=== PATIENT | female | born 1950 | race Caucasian/White ===

== ENCOUNTER 2018-12-07 05:47 | Emergency (ER) | payer OTHER ==
[~2018-12-07] VITALS: Ht 172.7 cm; Wt 90.7 kg
[~2018-12-07 05:47] MED LIST: ASPI-1153 PO; DILT30TA36 PO; HYDR200T38 PO; IBUP-1969 PO; MYCO500T5 PO; OMEP20CA10 PO
[2018-12-07 05:55] VITALS: BP_SYST 125
[2018-12-07] MEDS ORDERED: AMOXICILLIN 500 MG CAPSULE PO ONE (06:30)
[2018-12-07 06:37] VITALS: BP_SYST 125
== END 2018-12-07 06:35 | disposition home or self-care (01) ==
LOC: SED 05:47
DX: H72.93 Unspecified perforation of tympanic membrane, bilateral (principal); J06.9 Acute upper respiratory infection, unspecified; F41.9 Anxiety disorder, unspecified; Z79.899 Other long term (current) drug therapy
CPT/HCPCS: 99283

== ENCOUNTER 2019-01-23 13:52 | Emergency (ER) | payer OTHER ==
[~2019-01-23] VITALS: Ht 167.6 cm; Wt 93.0 kg
[2019-01-23 14:12] VITALS: BP_SYST 160
[2019-01-23 15:09] LABS: HEMATOCRIT 34.7 % (36-48); HEMOGLOBIN 11.2 g/dL (12.0-16.0); MEAN CORPUSCULAR HEMOGLOBIN 25 pg (27-31); MEAN CORPUSCULAR HGB CONC 32 % (32-36); MEAN CORPUSCULAR VOLUME 79 fL (79.0-98.0); PLATELET COUNT (AUTO) 248 K/uL (130-430); RED BLOOD CELL COUNT(AUTO) 4.42 MIL/uL (4.2-6.2); RED CELL DISTRIBUTION WIDTH 15.6 % (9.0-15.0)
[2019-01-23 15:10] LABS: BASOPHILS # (AUTO) 0.1 K/uL (0.0-0.2); BASOPHILS % (AUTO) 1.3 % (0.0-2.0); EOSINOPHILS # (AUTO) 0.2 K/uL (0.0-0.4); EOSINOPHILS % (AUTO) 2.8 % (0.0-4.0); LYMPHOCYTES # (AUTO) 1.2 K/uL (1.0-5.5); MONOCYTES # (AUTO) 0.7 K/uL (0.0-1.0); MONOCYTES % (AUTO) 11.5 % (1.7-9.3); NEUTROPHILS # (AUTO) 3.9 K/uL (1.8-7.7); NEUTROPHILS % (AUTO) 64.4 % (40.0-70.0)
[2019-01-23 15:16] LABS: CALCIUM 8.9 mg/dL (8.4-11.0); CREATININE 0.78 mg/dL (0.55-1.30); POTASSIUM 3.8 mmol/L (3.5-5.1)
[2019-01-23 15:18] LABS: ALBUMIN 3.6 g/dL (3.4-4.8); TOTAL BILIRUBIN 0.3 mg/dL (0.0-1.0)
[2019-01-23 15:21] LABS: INR 0.9 (0.8-1.2); PROTHROMBIN TIME 9.6 SECS (9.5-12.5)
[2019-01-23 17:22] VITALS: BP_SYST 133
== END 2019-01-23 17:22 | disposition home or self-care (01) ==
LOC: SED 13:52
DX: G45.9 Transient cerebral ischemic attack, unspecified (principal); R03.0 Elevated blood-pressure reading, without diagnosis of hypertension; F41.9 Anxiety disorder, unspecified; Z86.79 Personal history of other diseases of the circulatory system; Z79.899 Other long term (current) drug therapy
CPT/HCPCS: 36415; 70450-TC; 71045; 80053; 83880; 84484; 85025; 85610-TC; 85730-TC; 93005; 99284

== ENCOUNTER 2019-06-09 10:30 | Emergency (ER) | payer OTHER, MEDICAID ==
[~2019-06-09] VITALS: Ht 170.2 cm; Wt 90.7 kg
[2019-06-09 10:40] VITALS: BP_SYST 127
[2019-06-09] MEDS ORDERED: NACL 0.9% 1,000 ML IV ONE (10:57)
[2019-06-09] MEDS ORDERED: LORazepam 2 MG/ML VIAL IVP ONE (11:00)
[2019-06-09] MEDS ORDERED: LORazepam 2 MG/ML VIAL (FOR ER USE) IVP ONE (11:15)
[2019-06-09 11:28] LABS: BASOPHILS # (AUTO) 0.1 K/uL (0.0-0.2); BASOPHILS % (AUTO) 1.4 % (0.0-2.0); EOSINOPHILS # (AUTO) 0.1 K/uL (0.0-0.4); EOSINOPHILS % (AUTO) 1.4 % (0.0-4.0); HEMATOCRIT 39.4 % (36-48); HEMOGLOBIN 12.7 g/dL (12.0-16.0); LYMPHOCYTES # (AUTO) 1.1 K/uL (1.0-5.5); LYMPHOCYTES % (AUTO) 20.7 % (20.5-51.5); MEAN CORPUSCULAR HEMOGLOBIN 25 pg (27-31); MEAN CORPUSCULAR HGB CONC 32 % (32-36); MEAN CORPUSCULAR VOLUME 79 fL (79.0-98.0); MONOCYTES # (AUTO) 0.5 K/uL (0.0-1.0); MONOCYTES % (AUTO) 9.3 % (1.7-9.3); NEUTROPHILS # (AUTO) 3.5 K/uL (1.8-7.7); NEUTROPHILS % (AUTO) 67.2 % (40.0-70.0); PLATELET COUNT (AUTO) 215 K/uL (130-430); RED BLOOD CELL COUNT(AUTO) 5.01 MIL/uL (4.2-6.2); RED CELL DISTRIBUTION WIDTH 17.4 % (9.0-15.0); WHITE BLOOD COUNT (AUTO) 5.2 K/uL (4.8-10.8)
[2019-06-09 11:40] LABS: CALCIUM 9.2 mg/dL (8.4-11.0); CREATININE 0.83 mg/dL (0.55-1.30); POTASSIUM 3.8 mmol/L (3.5-5.1)
[2019-06-09 11:44] LABS: PROTHROMBIN TIME 10.1 SECS (9.5-12.5)
[2019-06-09 11:46] LABS: ALBUMIN 3.6 g/dL (3.4-4.8); TOTAL BILIRUBIN 0.4 mg/dL (0.0-1.0)
[2019-06-09 14:10] VITALS: BP_SYST 127
== END 2019-06-09 14:10 | disposition home or self-care (01) ==
LOC: SED 10:30
DX: R20.2 Paresthesia of skin (principal); F41.9 Anxiety disorder, unspecified; Z86.79 Personal history of other diseases of the circulatory system; Z79.82 Long term (current) use of aspirin; Z79.899 Other long term (current) drug therapy
CPT/HCPCS: 36415; 70450; 80053; 81002; 81025; 84484; 85025; 85610; 85730; 93005; 96374; 99284; J2060

== ENCOUNTER 2019-10-04 08:29 | Emergency (ER) | payer OTHER, MEDICAID ==
[~2019-10-04] VITALS: Ht 167.6 cm; Wt 90.7 kg
[~2019-10-04 08:29] MED LIST changes: -OMEP20CA10 PO; +OMEP20CA11 PO
[2019-10-04 08:30] VITALS: BP_SYST 117
--- NOTE | 2019-10-04 08:46 | NUR ---
Patient to ER bed 8 to gown for evaluation. Side rails up. Report given to DARIA Carcamo.
--- NOTE | 2019-10-04 08:48 | NUR ---
Patient is awake, alert, and oriented x4. Patient reports having a cold for over 1 week. She is complaining of right ear pain, cough, and dizziness.
--- NOTE | 2019-10-04 08:50 | NUR ---
ER Dr. Stephens at bedside examining patient.
--- NOTE | 2019-10-04 09:05 | NUR ---
Patient given written and verbal discharge instructions and verbalizes understanding. ER MD discussed with patient the results and treatment provided. Patient in stable condition. ID arm band removed. Rx of amoxicillin, promethazine, motrin given. Patient educated on pain management and to follow up with PMD. Pain Scale 8/10, MD is aware. Opportunity for questions provided and answered. Medication side effect fact sheet provided.
[2019-10-04 09:06] VITALS: BP_SYST 117
[2019-10-04 09:16] LABS: STREPTOCOCCUS A SCREEN (RAPID) NEGATIVE (NEGATIVE)
[2019-10-04 09:26] LABS: INFLUENZA A&B ANTIGEN SCREEN NEGATIVE FOR A & B (NEGATIVE)
== END 2019-10-04 09:05 | disposition home or self-care (01) ==
LOC: SED 08:29
DX: H66.91 Otitis media, unspecified, right ear (principal); Z79.899 Other long term (current) drug therapy
CPT/HCPCS: 36415; 86403; 86710; 87081; 99283

== ENCOUNTER 2019-12-29 05:19 | Emergency (ER) | payer OTHER, MEDICAID ==
[~2019-12-29] VITALS: Ht 167.6 cm; Wt 85.7 kg
[2019-12-29 06:15] VITALS: BP_SYST 110
--- NOTE | 2019-12-29 06:16 | NUR ---
Patient to ER bed 7 to gown for evaluation. Side rails up.
--- NOTE | 2019-12-29 06:20 | NUR ---
Pt BIB self to ED C/O cold-like symptoms for 1 week, with usage of hearing aid, pt also notice mild bleeding from L ear. No other complaints and or injuries noted. VSS no s/s of acute distress Resting on gurney rails up
--- NOTE | 2019-12-29 06:32 | NUR ---
Dr. Oro bedside for pt eval
[2019-12-29] MEDS ORDERED: IBUPROFEN 800 MG TABLET PO ONE (06:45)
[2019-12-29] MEDS ORDERED: AMOXICILLIN 500 MG CAPSULE PO ONE (06:45)
[2019-12-29 07:00] VITALS: BP_SYST 110
--- NOTE | 2019-12-29 07:00 | NUR ---
Patient given written and verbal discharge instructions and verbalizes understanding. ER MD discussed with patient the results and treatment provided. Patient in stable condition. ID arm band removed. Rx of Amoxicillin, Motrin given. Patient educated on pain management and to follow up with PMD. Pain Scale 0/10 Opportunity for questions provided and answered. Medication side effect fact sheet provided.
== END 2019-12-29 07:00 | disposition home or self-care (01) ==
LOC: SED 05:19
DX: H66.92 Otitis media, unspecified, left ear (principal); J06.9 Acute upper respiratory infection, unspecified; F41.9 Anxiety disorder, unspecified; J43.9 Emphysema, unspecified; Z79.899 Other long term (current) drug therapy; Z79.82 Long term (current) use of aspirin; Z86.73 Personal history of transient ischemic attack (TIA), and cerebral infarction without residual deficits
CPT/HCPCS: 99283